=== PATIENT | female | born 1980 | race African-American/Black ===

== ENCOUNTER 2021-07-07 01:38 | Emergency (ER) | payer OTHER, MEDICAID, SELFPAY ==
[2021-07-07 01:47] VITALS: BP 131/87; PULSE 99; RESP 19; TEMP 36.9; O2SAT 100; BMI 29.2
--- NOTE | 2021-07-07 01:52 | DI.US.S_ITS ---
PROCEDURE: US OB <= 14 WEEKS FETUS INDICATIONS: pain, bleeding, at 10 weeks OUTSIDE/PRIOR DATING DATA: Last menstrual period (LMP): 04/26/2020 LMP-based estimated date of delivery (REBEKA): 01/31/2021 First dating scan (date and location): Today All TECHNIQUE: Real-time scanning was performed of the fetus and maternal pelvic organs, with image documentation. Endovaginal scanning was also performed to better visualize the fetus and maternal ovaries. COMPARISON: None. FINDINGS: Embryo: Within the endometrial canal are 2 anechoic cystic structures likely representing amniotic sacs. The 1st labeled A measures 1.3 centimeters a mean gestational sac diameter corresponding to 6 weeks 1 day. No pole or yolk sac. The 2nd labeled B measures 1.4 centimeter in size and corresponds to 6 weeks 2 days. There is no pole or yolk sac. Possible 3rd intrauterine gestational sac versus pseudo gestational sac with mean sac diameter of 0.6 centimeters corresponding to gestational age of 5 weeks 2 days. No pole or yolk sac. Small subchorionic hemorrhage noted adjacent to B. Measurement variability in dating: +/- 4 weeks by LMP, +/- 7 days by mean sac diameter (use before 6 weeks gestation if crown-rump length not able to be measured), +/- 5 days by crown-rump length (up to 8 weeks 6 days gestation), +/- 7 days by crown-rump length (up to 13 weeks 6 days gestation). Maternal organs: Ovaries are unremarkable. Nabothian cysts. IMPRESSION: At least 2 intrauterine gestational sacs with a possible 3rd smaller gestational sac versus pseudo gestational sac. Mean sac diameter of the dominant gestational sacs correspond to 6 weeks 1 day and 6 weeks 2 days. No pole or yolk sac is identified in either gestational sac. This is NOT diagnostic of failure. Recommend trending of hCG and repeat ultrasound in approximately 7-13 days for further evaluation. Dictated by: Joe Obrien D.O. on 07/07/2021 at 6:33 Approved by: Joe Obrien D.O. on 07/07/2021 at 6:44
[2021-07-07 02:07] LABS: Add Manual Diff / Slide Review NO; Basophils Absolute Auto 0 /uL (0-100); Basophils Percent Auto 0.3 % (0-2); Eosinophils Absolute Auto 100 /uL (0-450); Eosinophils Percent Auto 0.9 % (2-4); Hemoglobin 13.8 g/dL (12.0-16.0); Lymphocytes Absolute Auto 1700 /uL (1100-4500); Lymphocytes Percent Auto 17.1 % (25-40); Mean Corpuscular HGB Conc 33.6 % (30-36); Mean Corpuscular Hemoglobin 28.8 PG (26-34); Mean Corpuscular Volume 85.5 fL (80-100); Monocytes Absolute Auto 700 /uL (0-900); Monocytes Percent Auto 6.5 % (3-14); Neutrophils Absolute Auto 7600 /uL (1500-7000); Neutrophils Percent Auto 75.2 % (50-75); Platelet Count 239 X10^3/uL (150-400); Red Cell Distribution Width 13.2 % (11.6-14.8); White Blood Cell Count 10.1 X10^3/uL (4.5-11.0)
--- NOTE | 2021-07-07 02:13 | ED_ITS ---
HPI - General Chief complaint: OB/Uterine Contractions Stated complaint: 10wks , bleeding and cramping Time Seen by Provider: 07/07/21 01:45 Source: patient Mode of arrival: Ambulatory Limitations: no limitations History of Present Illness HPI Narrative: 40F nonsmoker with benign medical history presents with her and a chief complaint of lower abdominal cramping and bleeding that started 45 minutes prior to her arrival. She is a at about 10 weeks without any significant care thus far. She is otherwise well and denies any dizziness, weakness or lightheadedness. She has no chest pain or shortness of breath. She denies any trauma or other injury. She states that she has cramping that started at about the same time as the bleeding is largely on the right side. She states that she thinks she is O-negative and historically needs RhoGAM Related Data Allergies Allergy/AdvReac Type Severity Reaction Status Date / Time No Known Drug Allergies Allergy Verified 07/07/21 01:47 Review of Systems Review of Systems Narrative: GENERAL: Denies chills, fatigue, malaise, fever, sweats. HEENT: Denies sinus pain, ear pain, sore throat, difficulty swallowing, dizziness. RESPIRATORY: Denies dyspnea, cough, wheezing, hemoptysis, sputum. CARDIOVASCULAR: Denies chest pain, palpitations, orthopnea, edema, GASTROINTESTINAL: Denies nausea, vomiting, abdominal pain, diarrhea, constipation, melena. : See HPI MUSCULOSKELETAL: denies weakness, joint pain, or bony pain SKIN: Denies rash, skin lesions, or other NEUROLOGIC: Denies weakness, headache, numbness, change in speech, confusion, seizures, incoordination. PSYCHIATRIC: No concerning psychosocial issues. 12 point review of systems is negative except for those stated above Exam Narrative Exam Narrative: GENERAL: [40 year old patient appears stated age. Well-developed patient, in mild distress. HEAD: Atraumatic. Normocephalic. EYES: Pupils equal round and reactive. Extraocular motions intact. No scleral icterus. No injection or drainage. ENT: Nose without bleeding, purulent drainage. Throat without erythema, tonsillar hypertrophy or exudate. Airway patent. NECK: Trachea midline. Non tender CARDIOVASCULAR: Regular rate and rhythm without murmurs, gallops, or rubs. RESPIRATORY: Clear to auscultation. Breath sounds equal bilaterally. No wheezes, rales, or rhonchi. GASTROINTESTINAL: Abdomen soft, tender in right lower quadrant, nondistended. EXTREMITIES: No edema or joint tenderness. BACK: Nontender without deformity or crepitance. No flank tenderness. NEURO: AOx3. SKIN: No rash or erythema of visible areas Initial Vital Signs Initial Vital Signs: Vital Signs Temperature 98.4 F 07/07/21 01:47 Pulse Rate 99 H 07/07/21 01:47 Respiratory Rate 19 07/07/21 01:47 Blood Pressure 131/87 07/07/21 01:47 Pulse Oximetry 100 07/07/21 01:47 Course Orders Ordered: ED Orders 07/07/21 01:52 US OB <= 14 weeks fetus Stat 07/07/21 02:00 ABO RH Type Stat Complete Blood Count AUTO DIFF Stat Comprehensive Metabolic Panel Stat HCG Quantitative /Beta subunit Stat Discontinued Medications Rho Immune Globulin (Rho(D) Immune Globulin 1,500 Unit Syringe) 1,500 unit IM NOW ONE Stop: 07/07/21 03:19 Last Admin: 07/07/21 04:13 Dose: 1,500 unit Documented by: OSMEL Vital Signs Vital signs: Vital Signs - 8 hr 07/07/21 01:47 07/07/21 04:59 Temperature 98.4 F Pulse Rate 99 H 95 H Respiratory Rate 19 Blood Pressure 131/87 108/70 Pulse Oximetry 100 97 MDM - OB/Uterine Contractions Lab Data Result diagrams: 07/07/21 02:00 07/07/21 02:00 Labs: Lab Results 07/07/21 07/07/21 07/07/21 Range/Units 02:00 02:00 02:00 WBC 10.1 (4.5-11.0) X10^3/uL RBC 4.80 (4.0-5.2) X10^6/uL Hgb 13.8 (12.0-16.0) g/dL Hct 41.0 (36-46) % MCV 85.5 (80-100) fL MCH 28.8 (26-34) PG MCHC 33.6 (30-36) % RDW 13.2 (11.6-14.8) % Plt Count 239 (150-400) X10^3/uL Neut % (Auto) 75.2 H (50-75) % Lymph % (Auto) 17.1 L (25-40) % Island % (Auto) 6.5 (3-14) % Eos % (Auto) 0.9 L (2-4) % Baso % (Auto) 0.3 (0-2) % Neut # (Auto) 7600 H (8222-8169) /uL Lymph # (Auto) 1700 (9300-2487) /uL Island # (Auto) 700 (0-900) /uL Eos # (Auto) 100 (0-450) /uL Baso # (Auto) 0 (0-100) /uL Sodium 138 (137-145) mmol/L Potassium 3.5 (3.4-5.1) mmol/L Chloride 105 (98-107) mmol/L Carbon Dioxide 24 (22-32) mmol/L BUN 8 (7-17) mg/dL Creatinine 0.60 (0.52-1.04) mg/dL Estimated GFR > 60.0 (>60) mL/min BUN/Creatinine Ratio 13.3 (6-22) Glucose 108 H (70-100) mg/dL Calcium 9.6 (8.4-10.2) mg/dL Total Bilirubin 0.3 (0.2-1.3) mg/dL AST 23 (14-36) IU/L ALT 23 (<35) IU/L Alkaline Phosphatase 66 (38-126) U/L Total Protein 7.3 (6.3-8.2) g/dL Albumin 4.3 (3.5-5.0) g/dL Globulin 3.0 (1.7-4.1) g/dL Albumin/Globulin Ratio 1.4 (1.0-2.8) HCG, Quant 35490 mIU/mL Blood Type O Negative Point of Care Testing Test Results Positive Urine Dip Bedside Urine Glucose Negative Bedside Urine Bilirubin - Negative Bedside Urine Ketone - Negative Urine Specific [place] 1.010 Bedside Urine Occult Blood + Bedside Urine pH 6.0 Bedside Urine Protein - Negative Bedside Urine Urobilinogen - Negative Bedside Urine Nitrite - Negative Bedside Urine Leukocytes - Negative Esterase Imaging Data US - OB: Radiologist's Impression: Twin intrauterine gestational sacs with a possible 3rd smaller gestational sac versus pseudo gestational sac. Mean sac diameter of dominant sacs corresponds to gestational age of approximately 6 weeks and 1 day, no yolk sac or pole is identified and findings are concerning for blighted ovum. Correlation with serial hCG recommended MDM Narrative Medical decision making narrative: Patient is well appearing with stable vitals. Labs are reassuring. US demonstrates IUP with multiple sacs and no pole, concerned at this reported age gestation. Patient is O- and given rhogam. Discussed with electric gas appliances demonstrator OB, no significant other recommendations other than close follow-up with serial hCG and likely ultrasounds. Return precautions given and questions answered to their apparent satisfaction Discharge Plan Departure Patient Disposition: Home Clinical Impression: Vaginal bleeding affecting early Instructions: DI for Vaginal Bleeding During Activity Restrictions/Additional Instructions: *You have been diagnosed with [vaginal bleeding and cramping in early . There is no evidence of ectopic , however as we discussed the u ltrasound suggests 2 if not 3 gestational sacs. It is unclear at this point if you are merely earlier in than thought, or if there is an abnormal evolving and close follow up with repeat labs and ultrasound is needed. *What to do: *Please continue to take your regular medications as directed. [ ] New medication prescriptions sent to your pharmacy: [ ] [ ] New medication written as a paper prescription [ ] No new medications given *Please follow up with your primary OB provider in 2-3 days, call for an appointment. Let them know you were seen in the Emergency Department and that we ask that you be seen in follow up. We will electronically transmit a record of today's note if your OB is in our system * as we discussed, pelvic rest is important, this means no intercourse or other vigorous activities until follow-up *Return to Emergency Department if you should have any new, worsening or concerning symptoms, such as [fever greater than 101 F, shaking chills, worsening pain, persistent vomiting, bleeding through more than 1 pad per hour or other bothersome symptoms]
[2021-07-07 02:19] LABS: Alanine Aminotransferase 23 IU/L (<35); Albumin 4.3 g/dL (3.5-5.0); Albumin Globulin Ratio 1.4 (1.0-2.8); Alkaline Phosphatase 66 U/L (38-126); Aspartate Aminotransferase 23 IU/L (14-36); BUN Creatinine Ratio 13.3 (6-22); Bilirubin Total 0.3 mg/dL (0.2-1.3); Blood Urea Nitrogen 8 mg/dL (7-17); Calcium 9.6 mg/dL (8.4-10.2); Carbon Dioxide 24 mmol/L (22-32); Chloride 105 mmol/L (98-107); Estimated Glomerular Filt Rate > 60.0 mL/min (>60); Glucose 108 mg/dL (70-100); HEMOLYSIS < 15 (0-50); Potassium 3.5 mmol/L (3.4-5.1); Sodium 138 mmol/L (137-145); Total Protein 7.3 g/dL (6.3-8.2)
[2021-07-07 03:01] LABS: HCG Quantitative /Beta subunit 17233 mIU/mL
[2021-07-07] MEDS: RHO(D) IMMUNE GLOBULIN 1,500 UNIT SYRINGE 1500 UNIT IM (04:13)
[2021-07-07 04:59] VITALS: BP 108/70; PULSE 95; O2SAT 97
== END 2021-07-07 05:07 | disposition home or self-care (01) ==
PROVIDERS: Emergency Provider Emergency Medicine
DX: O20.9 Hemorrhage in early pregnancy, unspecified (principal); O30.001 Twin pregnancy, unspecified number of placenta and unspecified number of amniotic sacs, first trimester; Z3A.01 Less than 8 weeks gestation of pregnancy
CPT/HCPCS: 36415; 76801; 76802; 76817; 80053; 81003; 81025; 84702; 85025; 86900; 86901; 96372; 99284; J2790